=== PATIENT | male | born 1970 | race Caucasian/White ===

== ENCOUNTER 2023-09-24 15:34 | Emergency (ER) | payer OTHER ==
[~2023-09-24] VITALS: Ht 172.7 cm; Wt 71.7 kg
[2023-09-24 17:04] VITALS: BP 128/88; PULSE 67; RESP 16; TEMP 98.7; O2SAT 100
[2023-09-24] MEDS ORDERED: TRAM50TA2 PO (17:16)
== END 2023-09-24 17:22 | disposition home or self-care (01) ==
LOC: ER 15:46
DX: M19.011 Primary osteoarthritis, right shoulder (principal); M24.9 Joint derangement, unspecified; F17.210 Nicotine dependence, cigarettes, uncomplicated
CPT/HCPCS: 73030